=== PATIENT | female | born 1940 | race Caucasian/White ===

== ENCOUNTER 2020-01-15 08:29 | Outpatient (CLI) | payer OTHER, SELFPAY ==
--- NOTE | ~2020-01-15 | MM_ITS ---
EXAMINATION: MM screening [facility] BI w javed HISTORY: Screening mammogram TECHNIQUE: Craniocaudal and mediolateral oblique 3-D tomosynthesis images were obtained and synthetic 2-D images were generated. CAD analysis was submitted and interpreted. COMPARISON: Comparison to multiple prior studies sequentially, with oldest reviewed study dated 09/01. BREAST PARENCHYMAL COMPOSITION: There are scattered areas of fibroglandular density. FINDINGS: There is no evidence of suspicious mass, calcification, or architectural distortion to sugg est malignancy in either breast. There has been no suspicious interval change. IMPRESSION: 1. No mammographic evidence of malignancy. 2. Recommend routine screening mammography in one year. BI-RADS Category 1: Negative Reviewed, dictated and finalized at location A.
== END 2020-01-15 08:30 | disposition home or self-care (01) ==
PROVIDERS: PCP Family Medicine; Visit Provider Obstetrics & Gynecology Gynecology
DX: Z12.31 Encounter for screening mammogram for malignant neoplasm of breast (principal)
CPT/HCPCS: 77063; 77067

== ENCOUNTER 2020-07-16 08:41 | Outpatient (CLI) | payer OTHER, SELFPAY ==
--- NOTE | ~2020-07-16 | DEXA_ITS ---
Bone Density Report Name: Lashaun Guzman Age: 79 Sex: Female Ethnicity: White Date of : 1940 Indication: osteopenia; height loss; hysterectomy; Referring Provider: MONICA GARCIA Study: Bone densitometry was performed. Exam Date: July 16, 2020 Accession number: [id number] Bone Density: Region BMD T-score Z-score Classification AP Spine (L1, L2, L3) 0.887 -1.2 1.4 Osteopenia Femoral Neck (Left) 0.616 -2.1 0.1 Osteopenia Total Hip (Left) 0.777 -1.4 0.6 Osteopenia Total Hip Bilateral Avg 0.763 -1.5 0.5 Osteopenia Femoral Neck (Right) 0.595 -2.3 0.0 Osteopenia Total Hip (Right) 0.748 -1.6 0.4 Osteopenia World Health Organization criteria for BMD impression classify patients as: Normal (T-score at or above -1.0), Osteopenia (T-score between -1.0 and -2.5), or Osteoporosis (T-score at or below -2.5). 10-year Fracture Risk(1): Major Osteoporotic Fracture 16% Hip Fracture 5.0% Reported Risk Factors: [place] (), Neck BMD=0.595, BMI=28.3 (1) FRAX(R) Version 3.08. Fracture probability calculated for an untreated patient. Fracture probability may be lower if the patient has received treatment. Previous Exams: Region Exam Age BMD T-score BMD Change BMD Change Date g/cm2 vs Baseline vs Previous AP Spine(L1, L2, L3) 07/16/2020 79 0.887 -1.2 0.019(2.2%)# 0.017(2.0%) 12/11/2017 77 0.870 -1.3 0.002(0.2%)# 0.002(0.2%)# 12/11/2006 66 0.868 -1.4 Total Hip(Left) 07/16/2020 79 0.777 -1.4 -0.119(-13.3%) -0.010(-1.2%) 12/11/2017 77 0.787 -1.3 -0.109(-12.2%) -0.109(-12.2%) 12/11/2006 66 0.896 -0.4 Total Hip(Right) 07/16/2020 79 0.748 -1.6 -0.081(-9.8%)# -0.009(-1.1%) 12/11/2017 77 0.756 -1.5 -0.073(-8.8%)# -0.073(-8.8%)# 12/11/2006 66 0.829 -0.9 *Denotes significance at 95% confidence level, LSC for AP Spine = 0.022 g/cm2, LSC for Total Hip = 0.027 g/cm2 Clinical Information Provided by Patient: Has used the following medications: Vitamin D Has the following medical conditions: Hysterectomy Patient maximum height was 63 Menopause Age: 49 No regular weight bearing exercise Does not regularly consume dairy products Drinks caffeinated beverages Onset of menses at age 11 Number of children 2 Impression: The patient has low bone mass, based on the Right Femoral Neck T-score. The patient has an estimated ten-year risk of hip fracture of 5% and an estimated ten-year risk of major fr
== END 2020-07-16 08:42 | disposition home or self-care (01) ==
PROVIDERS: PCP Family Medicine; Visit Provider Physician Assistant
DX: Z78.0 Asymptomatic menopausal state (principal); M85.89 Other specified disorders of bone density and structure, multiple sites
CPT/HCPCS: 77080

== ENCOUNTER 2020-09-17 10:05 | Emergency (ER) | payer OTHER, SELFPAY ==
--- NOTE | 2020-09-17 10:11 | ED.FEMALEGU ---
HPI - Female Genitourinary General Chief complaint: Urogenital-Female Stated complaint: uti Time Seen by Provider: 09/17/20 10:11 Source: patient and RN notes reviewed History of Present Illness HPI Narrative: Patient is a 79-year-old female who presents the urgent care with complaints of urinary frequency, urgency, suprapubic pressure and dysuria since Monday. Patient denies of any history of frequent UTIs. Denies of low back pain, fever, nausea, vomiting, abdominal pain. Patient has not taken anything [id number] for her symptoms. No other acute complaints. No acute distress noted. Patient aware of the plan of care. Some parts of this dictation were generated by voice recognition software and may contain typographical and/or grammatical inaccuracies. Related Data Home Medications Medication Instructions Recorded Confirmed multivitamin 1 tablet PO DAILY 06/25/19 09/17/20 omega-3 fatty acids 1,000 mg 1,000 mg PO DAILY 06/25/19 09/17/20 capsule Allergies Allergy/AdvReac Type Severity Reaction Status Date / Time Penicillins Allergy Unknown Unknown Verified 06/05/20 08:19 tramadol Allergy Unknown Unknown Verified 06/05/20 08:19 Review of Systems Review of Systems: Narrative: CONSTITUTIONAL: Denies fever, chills, or sweats. EYES: Denies visual changes, redness, or discharge. ENT: Denies rhinorrhea, congestion, sore throat, or otalgia. CARDIOVASCULAR: Denies chest pain, palpitations, or edema. RESPIRATORY: Denies cough or dyspnea. GASTROINTESTINAL: Denies abdominal pain, nausea, vomiting, or diarrhea. GENITOURINARY: Reports of suprapubic pressure, dysuria, frequency, urgency SKIN: Denies rash or itching. MUSCULOSKELETAL: Denies back pain, joint pain, or myalgia. NEUROLOGIC: Denies headache, numbness, or weakness. All other systems reviewed are negative, except as documented in HPI. [facility] Past Medical History Medical History (Updated 09/17/20 @ 10:36 by JINA Mckeon) History of cystocele Surgical History Surgical History (Updated 06/26/19 @ 09:00 by Michael Gifford MD) H/O rectocele repair Family History Family History (Updated 04/03/14 @ 07:13 by DOCTOR UNKNOWN) Father Hypertension Family history of coronary artery disease Social History Social History Smoking packs per day: 1 Smoking cigarettes per day: 20.0 Years smoked: 45 Smoking pack-years: 45.00 Smoking status: Former smoker Tobacco type: cigarettes Second hand tobacco smoke exposure: No Smoking end date: 08/07/04 Alcohol intake: never Substance use: never Substance use type: does not use Gender identity (if verbalized by the patient): Female Comments At the time of my signature, I reviewed and agree with the nursing past medical, surgical, social, and family history. There is no relevant family history pertinent to the patient complaint. Exam Narrative: Exam Narrative: GENERAL: This is a well-nourished, well-developed patient, in no apparent distress. HEAD: normocephalic, atraumatic. EYES: PERRL. Sclera clear/white. Vision is grossly intact. EARS: External ears normal NOSE: External nose normal with no obvious nasal discharge, nares without redness, no rhinorrhea. THROAT: Mucous membranes moist NECK: Neck supple GASTROINTESTINAL: Abdomen soft, moderate suprapubic tenderness, nondistended. SKIN: warm, intact with no suspicious lesions or rash, good texture and turgor. NEURO: awake, alert, and oriented to person, place and time. There were no obvious focal neurologic abnormalities. EXTREMITIES: No clubbing, cyanosis, or edema. BACK: Negative bilateral CVA tenderness Course Vital Signs Vital signs: Vital Signs Temperature 98.1 F 09/17/20 10:16 Pulse Rate 87 09/17/20 10:16 Respiratory Rate 20 09/17/20 10:16 Blood Pressure 136/71 09/17/20 10:16 Pulse Oximetry 99 09/17/20 10:16 Temperature 98.1 F 09/17/20 1
[2020-09-17 10:16] VITALS: BP 136/71; PULSE 87; RESP 20; TEMP 36.7; O2SAT 99
== END 2020-09-17 10:40 | disposition home or self-care (01) ==
PROVIDERS: Emergency Provider Nurse Practitioner Family; PCP Family Medicine
DX: N39.0 Urinary tract infection, site not specified (principal); Z87.891 Personal history of nicotine dependence
CPT/HCPCS: 81003; 87077; 87086; 87088; 87186; 99213; G0463

== ENCOUNTER → 2021-01-02 03:35 | Outpatient (CLI) | payer OTHER, SELFPAY ==
[2021-01-02 19:46] LABS: SARS-CoV-2 RNA PCR Negative
== END ==
PROVIDERS: PCP Family Medicine; Visit Provider Internal Medicine Gastroenterology
DX: Z01.812 Encounter for preprocedural laboratory examination (principal); Z20.822 Contact with and (suspected) exposure to COVID-19
CPT/HCPCS: C9803; U0003; U0005

== ENCOUNTER 2021-01-05 00:25 | Day surgery (SDC) | payer OTHER, SELFPAY ==
[2020-12-23 13:51] VITALS: BMI 27.8
[2021-01-05 08:10] VITALS: BP 131/72; PULSE 81; RESP 18; TEMP 36.4; O2SAT 100; BMI 28.2
[2021-01-05] MEDS: LACTATED RINGERS 1,000 ML 150 ML IV CONT (08:20)
--- NOTE | 2021-01-05 08:54 | WPDANESEPPF ---
Anes - Initial Pre Proc Eval Procedure: Operation Date: 01/05/21 09:15 Proposed Procedures p Esophagogastroduodenoscopy - Carlito Edwards MD Date/Time: 01/05/21 08:54 Surgeon: Carlito Edwards MD Pre Op Diagnosis: epigastric pain Patient Data Age: 80 Gender: F Height: 5 ft 1 in Weight: 67.7 kg Last Vital Signs Temp 97.6 F 01/05/21 08:10 Pulse 81 01/05/21 08:10 Resp 18 01/05/21 08:10 BP 131/72 01/05/21 08:10 Pulse Ox 100 01/05/21 08:10 Allergies Allergy/AdvReac Type Severity Reaction Status Date / Time Penicillins Allergy Unknown Unknown Verified 01/05/21 08:09 tramadol Allergy Unknown Unknown Verified 01/05/21 08:09 Home Medications Medication Instructions Recorded Confirmed Type lisinopril 5 mg tablet See Rx Instructions .ROUTE 10/16/20 01/05/21 Rx .COMPLEX #90 tablet Patient hx anesthesia problems: none Family hx anesthesia problems: none PMFSH Past Medical History Medical History (Updated 01/05/21 @ 08:54 by Shiv Gaona MD) Essential (primary) hypertension History of cystocele Mixed hyperlipidemia Surgical History Surgical History (Updated 06/26/19 @ 09:00 by Michael Gifford MD) H/O rectocele repair Family History Family History (Updated 04/03/14 @ 07:13 by DOCTOR UNKNOWN) Father Hypertension Family history of coronary artery disease Social History Social History Smoking packs per day: 1 Smoking cigarettes per day: 20.0 Years smoked: 40 Smoking pack-years: 40.00 Smoking status: Former smoker Tobacco type: cigarettes Second hand tobacco smoke exposure: No Smoking end date: 08/07/04 Alcohol intake: never Substance use: never Substance use type: does not use Living arrangements: alone Gender identity (if verbalized by the patient): Female Spiritual care concerns: No Anes - Eval Final PreProcedure Day of Procedure 01/05/21 08:54 Patient weight: normal Heart: regular rate and rhythm Lungs: clear to auscultation Airway: Mallampati scale class II Neurological: alert and oriented Last oral intake: >/= 8 hours ASA classification: II Emergent: no Anesthetic plan: proceed Anesthesia type and monitoring: general GIVS and standard monitoring Informed Consent: The patient's anesthetic plan and its attendant risks and benefits were discussed with the patient/family/POA. Questions were solicited and answers provided to the satisfaction of the patient/family/POA.
--- NOTE | 2021-01-05 08:56 | PM.HPGS ---
History of Present Illness History of Present Illness Consent: Risks, benefits, and alternatives have been discussed and questions answered. Patient agrees to proceed with procedure. Chief complaint: epigastric pain Narrative: Lashaun Guzman is a 80 year old female with intermittent epigastric pain and nausea, using omeprazole as needed. H pylori breathing test negative. Review of Systems Constitutional: Constitutional: Denies headache(s) and Denies weakness Eyes: Eyes: Denies blurry vision ENT: Reports Normal hearing present, Denies headache(s) and Denies neck pain Cardiovascular: Cardiovascular: Denies chest pain and Denies dyspnea Respiratory: Respiratory: Denies dyspnea Gastrointestinal: Gastrointestinal: Reports no additional gastrointestinal complaints Genitourinary: Genitourinary: Denies dysuria Musculoskeletal: Musculoskeletal: Denies neck pain Integumentary/Breasts: Skin/Breast: Denies dry skin Neurologic: Reports Normal hearing present, Denies headache(s) and Denies weakness Psychiatric: Psychiatric: Denies anxiety Endocrine: Endocrine: Denies change in body appearance Hematologic/Lymphatic: Hematologic/Lymphatic: Denies easy bleeding Allergic/Immunologic: Allergic/Immunologic: Denies urticaria PMF Past Medical History Medical History (Updated 01/05/21 @ 08:56 by Carlito Edwards MD) Epigastric pain Essential (primary) hypertension History of cystocele Mixed hyperlipidemia Surgical History Surgical History (Updated 06/26/19 @ 09:00 by Michael Gifford MD) H/O rectocele repair Family History Family History (Updated 04/03/14 @ 07:13 by DOCTOR UNKNOWN) Father Hypertension Family history of coronary artery disease Social History Social History Smoking packs per day: 1 Smoking cigarettes per day: 20.0 Years smoked: 40 Smoking pack-years: 40.00 Smoking status: Former smoker Tobacco type: cigarettes Second hand tobacco smoke exposure: No Smoking end date: 08/07/04 Alcohol intake: never Substance use: never Substance use type: does not use Living arrangements: alone Gender identity (if verbalized by the patient): Female Spiritual care concerns: No Meds Home Medications and Allergies Home Medications Medication Instructions Recorded Confirmed Type lisinopril 5 mg tablet See Rx Instructions .ROUTE 10/16/20 01/05/21 Rx .COMPLEX #90 tablet Allergies Allergy/AdvReac Type Severity Reaction Status Date / Time Penicillins Allergy Unknown Unknown Verified 01/05/21 08:09 tramadol Allergy Unknown Unknown Verified 01/05/21 08:09 Vital Signs Vital Signs - 24 hr 01/05/21 08:10 Temperature 97.6 F Pulse Rate 81 Respiratory Rate 18 Blood Pressure 131/72 Pulse Oximetry 100 Exam Const: General: comfortable and no acute distress HENMT: General nose exam: Normal nares present Eyes: General: appearance normal, both eyes and all related structures Neck: Neck: no JVD Resp: Auscultation: clear to auscultation bilaterally Cardio: Rate: regular rate Rhythm: regular rhythm GI: Inspection: non-distended GI Palp: Yes Soft to palpation Skin: General skin exam: normal color Neuro: General: gait normal Speech: normal speech Extrem: General: normal to inspection Psych: Mental Status: mental status grossly normal Assessment and Plan Assessment and plan (1) Epigastric pain: Code(s): R10.13 - Epigastric pain Status: Acute Assessment and Plan: egd with bx
[2021-01-05 09:13] VITALS: BP 114/57; PULSE 76; RESP 22; O2SAT 97
[2021-01-05 09:23] VITALS: BP 118/57; PULSE 73; RESP 20; O2SAT 99
[2021-01-05 09:33] VITALS: BP 120/65; PULSE 75; RESP 20; O2SAT 99
== END 2021-01-05 10:00 | disposition home or self-care (01) ==
PROVIDERS: PCP Family Medicine; Visit Provider Internal Medicine Gastroenterology
PROC: 0DJ08ZZ Inspection of Upper Intestinal Tract, Via Natural or Artificial Opening Endoscopic (ICD-10-PCS; CPT 43235; principal; 2021-01-05 09:15)
DX: K21.9 Gastro-esophageal reflux disease without esophagitis (principal); R11.0 Nausea; K44.9 Diaphragmatic hernia without obstruction or gangrene; K29.50 Unspecified chronic gastritis without bleeding; E78.2 Mixed hyperlipidemia; I10 Essential (primary) hypertension; Z87.891 Personal history of nicotine dependence
CPT/HCPCS: 43239; 88305; C9803; J2704; J7120; U0003; U0005

== ENCOUNTER 2021-01-19 08:28 | Outpatient (CLI) | payer OTHER, SELFPAY ==
--- NOTE | ~2021-01-19 | MM_ITS ---
EXAMINATION: MM screening [facility] BI w javed HISTORY: Screening mammogram TECHNIQUE: Craniocaudal and mediolateral oblique 3-D tomosynthesis images were obtained and synthetic 2-D images were generated. CAD analysis was submitted and interpreted. COMPARISON: 01/15/2020, 11/06/2018, 10/02/2017 BREAST PARENCHYMAL COMPOSITION: There are scattered areas of fibroglandular density. FINDINGS: Scattered benign-appearing calcifications are present. There is no evidence of suspicious m ass, calcification, or architectural distortion to suggest malignancy in either breast. There has bee n no suspicious interval change. IMPRESSION: 1. No mammographic evidence of malignancy. 2. Recommend routine screening mammography in one year. BI-RADS Category 2: Benign finding(s). Reviewed, dictated and finalized at location A.
== END 2021-01-19 08:29 | disposition home or self-care (01) ==
LOC: ANHIMG 08:32
PROVIDERS: PCP Family Medicine; Visit Provider Obstetrics & Gynecology Gynecology
DX: Z12.31 Encounter for screening mammogram for malignant neoplasm of breast (principal)
CPT/HCPCS: 77063; 77067

== ENCOUNTER 2022-05-04 15:36 | Outpatient (CLI) | payer OTHER, SELFPAY ==
--- NOTE | ~2022-05-04 | MM_ITS ---
EXAMINATION: MM screening [facility] BI w javed HISTORY: Screening mammogram TECHNIQUE: Craniocaudal and mediolateral oblique 3-D tomosynthesis images were obtained and synthetic 2-D images were generated. CAD analysis was submitted and interpreted. COMPARISON: 01/19/2021, 01/15/2020, 11/06/2018 bilateral screening mammogram examinations BREAST PARENCHYMAL COMPOSITION: There are scattered areas of fibroglandular density. FINDINGS: Occasional bilateral benign calcifications. There is no evidence of suspicious mass, calcif ication, or architectural distortion to suggest malignancy in either breast. There has been no suspic ious interval change. IMPRESSION: 1. No mammographic evidence of malignancy. 2. Recommend routine screening mammography in one year. BI-RADS Category 2: Benign finding(s). Reviewed, dictated and finalized at location A.
== END 2022-05-04 15:37 | disposition home or self-care (01) ==
LOC: ANHIMG 15:39
PROVIDERS: PCP Family Medicine; Visit Provider Obstetrics & Gynecology Gynecology
DX: Z12.31 Encounter for screening mammogram for malignant neoplasm of breast (principal)
CPT/HCPCS: 77063; 77067

== ENCOUNTER → 2022-06-14 11:27 | Outpatient (CLI) | payer OTHER, SELFPAY ==
--- NOTE | ~2022-06-14 | XR_ITS ---
EXAMINATION: [id number] DATE: 06/14/2022 11:54 INDICATION: Neck and right arm pain. TECHNIQUE: 4 views of cervical spine were obtained. COMPARISON: None. FINDINGS: Bone alignment is normal. Vertebral body heights are normal. There is moderately decreased disc height at C4-C5 and severely decreased disc height at C5-C6 and C6-C7. There is multilevel uncov ertebral joint osteoarthritis, severe bilaterally from C4-C5 through C6-C7. There is multilevel facet joint osteoarthritis, severe at C7-T1. There is mild central canal stenosis at C5-C6. No prevertebra l soft tissue swelling. IMPRESSION: 1. Severe cervical spondylosis. Reviewed, dictated and finalized at location A. [employer]
== END ==
PROVIDERS: PCP Family Medicine; Visit Provider Family Medicine
DX: M47.812 Spondylosis without myelopathy or radiculopathy, cervical region (principal)
CPT/HCPCS: 72040

== ENCOUNTER 2022-09-02 09:49 | Outpatient (CLI) | payer OTHER, SELFPAY ==
--- NOTE | ~2022-09-02 | DEXA_ITS ---
Bone Density Report Name: RESHMA FELTON Age: 81 Sex: Female Ethnicity: White Date of : 1940 Indication: postmenopausal; screening for osteoporosis; height loss; hysterectomy; Referring Provider: LEEANNA ANDRADE Study: Bone densitometry was performed. Exam Date: September 02, 2022 Accession number: [id number] Bone Density: Region BMD T-score Z-score Classification AP Spine(L1, L2, L3) 0.903 -1.0 1.6 Normal Femoral Neck (Left) 0.598 -2.3 0.1 Osteopenia Total Hip (Left) 0.802 -1.1 1.0 Osteopenia Femoral Neck (Right) 0.629 -2.0 0.4 Osteopenia Total Hip (Right) 0.765 -1.4 0.7 Osteopenia Total Hip Mean 0.784 -1.3 0.9 Osteopenia World Health Organization criteria for BMD impression classify patients as: Normal (T-score at or above -1.0), Osteopenia (T-score between -1.0 and -2.5), or Osteoporosis (T-score at or below -2.5). 10-year Fracture Risk(1): Major Osteoporotic Fracture 17% Hip Fracture 5.4% Reported Risk Factors: [place] (), Neck BMD=0.598, BMI=28.6 (1) FRAX(R) Version 3.08. Fracture probability calculated for an untreated patient. Fracture probability may be lower if the patient has received treatment. Clinical Information Provided by Patient: Has used the following medications: HRT (i.e. estrogen/hormone therapy), Vitamin D Has the following medical conditions: Hysterectomy Patient maximum height was 63 Menopause Age: 49 Does not regularly consume dairy products Drinks caffeinated beverages Onset of menses at age 11 Number of children 2 Impression: The patient has low bone mass, based on the Left Femoral Neck T-score. The patient has an estimated ten-year risk of hip fracture of 5.4% and an estimated ten-year risk of major fracture of 17%, based on the WHO FRAX algorithm. Discussion: BONE DENSITY IS LOW AT ONE OR MORE SKELETAL SITES. THE PATIENT'S BMD AND CLINICAL RISK FACTORS CONTRIBUTE TO THIS PATIENT'S INCREASED RISK OF FRACTURE. This patient's lowest T-score is low at one or more skeletal sites. It meets the World Health Organization's (WHO) criteria for ?low bone mass? (T-score between -1.0 and -2.5). The patient's 10-year risk of hip fracture as calculated by FRAX exceeds the threshold where pharmacological therapy is recommended by the National Osteoporosis Foundation (NOF). However, all treatment decisions require clinical judgment and consideration of individual patient factors, including patient preferences, comorbidities, previous drug use, risk factors not captured in the FRAX model (e.g., frailty, falls, vitamin D deficiency, increased bone turnover, interval significant decline in bone density) and possible under or overestimation of fracture risk by FRAX. The patient should follow a healthful lifestyle (good nutrition with adequate calcium and vi
== END 2022-09-02 09:50 | disposition home or self-care (01) ==
PROVIDERS: PCP Family Medicine; Visit Provider Physician Assistant
DX: Z13.820 Encounter for screening for osteoporosis (principal); M85.80 Other specified disorders of bone density and structure, unspecified site; Z78.0 Asymptomatic menopausal state
CPT/HCPCS: 77080

== ENCOUNTER 2024-02-27 08:39 | Outpatient (CLI) | payer OTHER, SELFPAY ==
--- NOTE | ~2024-02-27 | MM_ITS ---
EXAMINATION: MM screening [facility] BI w javed HISTORY: Screening TECHNIQUE: Craniocaudal and mediolateral oblique 3-D tomosynthesis images were obtained and synthetic 2-D images were generated. CAD analysis was submitted and interpreted. COMPARISON: Comparison to multiple prior studies sequentially, with oldest reviewed study dated 01/2017. BREAST PARENCHYMAL COMPOSITION: Not dense: There are scattered areas of fibroglandular density. FINDINGS: There is no evidence of suspicious mass, calcification, or architectural distortion to sugg est malignancy in either breast. There has been no suspicious interval change. IMPRESSION: 1. No mammographic evidence of malignancy. 2. Recommend routine screening mammography in one year. BI-RADS Category 1: Negative Reviewed, dictated and finalized at location B.
== END 2024-02-27 08:40 | disposition home or self-care (01) ==
LOC: ANHIMG 08:42
PROVIDERS: PCP Family Medicine; Visit Provider Hospitalist
DX: Z12.31 Encounter for screening mammogram for malignant neoplasm of breast (principal)
CPT/HCPCS: 77063; 77067

== ENCOUNTER 2025-03-25 15:34 | Outpatient (CLI) | payer OTHER, SELFPAY ==
--- NOTE | ~2025-03-25 | MM_ITS ---
EXAMINATION: MM screening [facility] BI w javed HISTORY: Screening mammogram TECHNIQUE: Craniocaudal and mediolateral oblique 3-D tomosynthesis images were obtained and synthetic 2-D images were generated. CAD analysis was submitted and interpreted. COMPARISON: 02/27/2024, 05/04/2022, 01/19/2021, 01/15/2020 BREAST PARENCHYMAL COMPOSITION:Not Dense. There are scattered areas of fibroglandular density. FINDINGS: No suspicious mass, calcification, or architectural distortion are identified in either breast to suggest malignancy. There has been no suspicious interval change. IMPRESSION: No mammographic evidence of malignancy. Recommend routine screening mammography in one year. BI-RADS Category 1: Negative Reviewed, dictated and finalized at location .
--- OUTSIDE RECORDS SUMMARY | 2025-03-25 16:01 | XMS_ITS | Clinical Summary ---
Author Organization [facility] Address [address] [facility] [address] [place] [id number] Phone Care Team Providers Care Remote Sensing Program Manager Name Role Phone Letty Servin MD Primary Care Pro vider Michael Mello MD Unavailable [phone] Allergies Active Allergy Reactions Criticality Noted Date Comments Duloxetine Nausea & Vomiting Low 05/30/2023 Doxycycline Nausea & Vomiting Low 10/10/2023 Penicillins Anaphylaxis High 07/28/2015 Reaction: ANAPHYLAXIS, , ANAPHYLACTIC. Medications docusate sodium (COLACE) 100 mg capsuleIndicat ions:constipat ion Take 1 capsule (100 mg total) by mouth every other day Active multivit with min-folic acid 0.4 mg tablet Take by mouth Ac tive cholecalcifero l (VITAMIN D-3) 2000 unit tabletIndicati ons:Vitamin D deficiency Take 1 tablet (2,000 Units total) by mouth daily 90 tablet 3 5 09/11/19 26 Active alendronate (FOSAMAX) 70 mg tabletIndicati ons:Osteopenia with high risk of fracture Take 1 tablet (70 mg total) by mouth every 7 days Take in the morning with a full glass of water, on an empty stomach, and do not take anything else by mouth or lie down for the next 30 min. 12 tablet 4 5 09/11/19 26 Active famotidine (PEPCID) 40 mg tabletIndicati ons:History of gastritis Take 1 tablet (40 mg total) by mouth nightly 90 tablet 1 5 12/20/19 26 Active Additional Information Patient not taking.Reason: bc she is on high dose of prednisone and pantoprazole, Reported on 03/13/2025 tiZANidine (ZANAFLEX) 2 mg tabletIndicati ons:Nocturnal muscle cramps TAKE 1 TABLET BY MOUTH EVERY 8 HOURS NEEDED FOR MUSCLE SPASMS. 270 tablet 1 5 Active predniSONE (DELTASONE) 20 mg tabletIndicati ons:ITP Take 3 tablets (60 mg) by mouth daily 60mg daily for 2 weeks, 40 mg for 2 weeks, 30mg for 2 weeks, 20 mg for 2 weeks and then 10 mg [address] (PROTONIX) 40 mg EC tabletIndicati ons:GI Bleed,Stress Ulcer Prophylaxis,Tr eatment of Non-Bleeding Gastric Disorder Take 1 tablet (40 mg total) by mouth 2 (two) times a day 60 tablet 2 5 Active lidocaine (LIDODERM) 5 %Indications:C hronic midline low back pain with bilateral sciatica Place 1 patch on the skin daily Apply to painful area 12 hours per day, remove for 12 hours. 90 patch 1 4 03/13/20 25 Discontin ued(Thera py completed ) pantoprazole DR (PROTONIX) 20 mg EC tabletIndicati ons:History of gastritis Take 1 tablet (20 mg total) by mouth daily 90 tablet 1 5 03/13/20 25 Discontin ued(Reord er) Active Problems Problem Noted Date Diagnosed Date Osteopenia with high risk of fracture 12/19/2024 Assessment & Plan (12/19/2024 1:38 PM CDT): Continue fosamax Encounter for annual wellnes s visit (AWV) in Medicare patient 11/28/2023 Assessment & Plan (12/19/2024 1:10 PM CDT): Reviewed PMH & FH PHQ Screening PHQ-2 Total Score (If total score is 3 or more points, staff should administer the PHQ-9): 1 Hearing/vision screening reviewed, referrals placed as needed Fall risk reviewed Reviewed medications and supplements Specialists: optho no evidence of cognitive impairment HCM: orders placed as needed Assessment & Plan (11/28/2023 9:44 AM CDT): Reviewed PMH & PHQ Screening PHQ-2 Total Score (If total score is 3 or more points, staff should administer the PHQ-9): 0 PHQ-9 Total Score: 2 Hearing/vision screening reviewed, referrals placed as needed Fall risk reviewed Reviewed medications and supplements Specialists: optho no evidence of cognitive impairment HCM: orders placed as needed Vitamin D deficiency 11/28/2023 Assessment & Plan (12/19/2024 1:39 PM CDT): Controlled continue 2000 international units daily Assessment & Plan (06/21/2024 2:42 PM AMBULATORY CARE): recheck Assessment & Plan (11/28/2023 9:55 AM CDT): At goal Continue supplementation Primary osteoarthritis involving multiple joints 11/28/2023 Assessment & Plan (11/28/2023 10:12 AM CDT): Discussed supportive care, consider starting low dose effexor vs. Amitriptyline pending heme visit next month History of gastritis 10/11/2023 Assessment & Plan (12/19/2024 1:37 PM CDT): Uncontrolled increase pepcid to 40mg nightly If persistent symptoms restart protonix daily Assessment & Plan (06/21/2024 2:53 PM AMBULATORY CARE): Doing well, will try decreasing protonix to 20mg daily Continue pepcid 20mg nightly, can increase to 40mg nightly or 20mg twice a day if needed Assessment & Plan (11/28/2023 10:13 AM CDT): After 2 months will taper down to once a day and then if well tolerated taper down to 20mg daily followed by 20mg every other day Assessment & Plan (10/13/2023 11:29 AM AMBULATORY CARE): Reviewed discharge summary Continue 40mg protonix twice a day x8w Avoid NSAIDS Acute duodenitis 10/11/2023 Assessment & Plan (10/13/2023 11:38 AM AMBULATORY CARE): Reviewed discharge summary Continue 40mg protonix twice a day x8w Avoid NSAIDS Dyspnea 10/10/2023 Thrombocytopenia, unspecified 09/13/2023 Assessment & Plan (12/19/2024 1:11 PM CDT): Following with heme Assessment & Plan (06/21/2024 2:42 PM AMBULATORY CARE): Following with heme Assessment & Plan (11/28/2023 9:55 AM CDT): Following with heme, reviewed note and labs Hypertension 12/21/2013 Overview (11/09/2016): HYPERTENSION NOS Assessment & Plan (12/19/2024 1:11 PM CDT): Blood pressure controlled off medication Assessment & Plan (06/21/2024 2:40 PM AMBULATORY CARE): Blood pressure controlled off medication Assessment & Plan (11/28/2023 9:44 AM CDT): Blood pressure controlled off medication Assessment & Plan (10/13/2023 11:43 AM AMBULATORY CARE): Blood pressure uncontrolled during hospitalization Continue 2.5mg amlodipine Monitor blood pressure at home, if dropping or develops dizziness stop and let me know History of diabetes mellitus 12/21/2013 Overview (11/10/2016): DMII WO CMP UNCNTRLD Assessment & Plan (05/23/2023 8:27 AM CDT): Lab Results Component Value Date HGBA1C 5.0 03/16/2023 Stable off medications Notalgia 05/06/2013 Assessment & Plan (12/19/2024 1:40 PM CDT): Following with orthopedics Cervicalgia 04/16/2010 Resolved Problems Problem Noted Date Diagnosed Date Resolved Date Abdominal pain 10/10/2023 11/28/2023 Epigastric pain 10/10/2023 11/28/2023 Nausea 10/10/2023 11/28/2023 Hypoglycemia 12/21/2013 05/23/2023 Overview (11/11/2016): HYPOGLYCEMIA NOS Hyperlipidemia 12/21/2013 12/19/2024 Overview (11/11/2016): HYPERLIPIDEMIA NEC/NOS Encounters Date Type Department Care Team Description 03/17/2025 Orders Only [facility] Hematology [facility] [address] [place] [address] Sharon Anders Primary hypertension (Primary Dx) 03/13/2025 11:00 AM CDT Office Visit [facility] Oncology [address] [place] [address] [address] [place] [address] Sofie Levi NP Thrombocytopenia, unspecified (Primary Dx); History of gastritis 03/13/2025 10:30 AM CDT Lab [facility] at [address] [address] Thrombocytopenia, unspecified 03/06/2025 Orders Only [facility] [address] [place] [address] [address] [place] [address] Manisha Granado, PERFECTO Thrombocytopenia, unspecified (Primary Dx) 02/26/2025 10:00 AM CDT Lab [facility] at [address] [address] Thrombocytopenia, unspecified 01/23/2025 11:15 AM CDT Office Visit [facility] Primary Care at [address] [place] [address] Letty Servin MD Abnormal bone marrow examination (Primary Dx); Interstitial lung abnormality present on imaging study; Kidney lesion 01/22/2025 Telephone [facility] Orthopedics and Sports Medicine [address] [place] [address] [address] [place] [address] No Gentile NP 01/20/2025 Telephone [facility] Primary Care at [place] [address] [facility] [address] [place] [phone] Letty Servin MD 01/20/2025 Telephone [facility] Orthopedics and Sports Medicine [address] [place] [address] [address] [place] [address] No Gentile NP 01/18/2025 7:15 AM CDT - 01/18/2025 11:59 PM CDT Hospital Encounter [facility] MRI [address] [place] [id number] Chronic bilateral low back pain with left-sided sciatica; Lumbar facet arthropathy, moderate to severe inferior; Degeneration of intervertebral disc of lumbar region, moderate to severe L1-L4 and mild L4-L5 with discogenic back pain and lower extremity pain Discharge Disposition: Discharge to home or self care 12/31/2024 8:30 AM CDT Office Visit [facility] Orthopedics and Sports Medicine [address] [place] [address] [place] [phone] No Gentile, INES Myofascial pain syndrome of lumbar spine (Primary Dx); Chronic bilateral low back pain with left-sided sciatica; Lumbar facet arthropathy, moderate to severe inferior; Degeneration of intervertebral disc of lumbar region, moderate to severe L1-L4 and mild L4-L5 with discogenic back pain and lower extremity pain; Retrolisthesis of lumbar vertebrae, grade 1 L1 on L2 through L3 on L4 from Last 3 Months Immunizations Immunization Administration Dates Next Due Influenza, Quad, Adjuvantate d, Intramuscular 05/22/2020 Influenza, Quadrivalent, Hig h Dose, Preservative Free, Intrr 06/14/2023,07/01/2022,05/15/2022,07/07 Influenza, Trivalent, Adjuva nted, Intramuscular 05/22/2018 Influenza, Trivalent, High D ose, Split, Preservative Free, Intramuscular 05/31/2024,06/14/2019,05/26/2017,05/08,06/12/2015 Influenza, Trivalent, IM (MDV) 06/03/2013 Influenza, Unspecified 06/10/2021 Pfizer SARS-CoV-2 Monovalent Vaccination (12+ Yrs) PURPLE 07/24/2022,06/10/2021,10/04/2020,09/13 Pneumococcal Conjugate PCV 13 05/22/2018 Pneumococcal Conjugate Pcv20 03/09/2023 RSV Vaccine, Pref, Recombina nt, Subunit, Adjuvanted, PF, IM (Arexvy) 07/06/2023 ZOSTER Recombinant 09/10/2019,06/14/2019 Surgical History Surgery Date Site/Laterality Comments SD TOTAL ABDOMINAL HYSTERECT W/WO RMVL TUBE OVARY Hysterectomy - (Added by TW Conv) SD CHOLECYSTECTOMY Cholecystectomy - (Added by TW Conv) CATARACT EXTRACTION Cataract Surgery - (Added by TW Conv) TOTAL KNEE ARTHROPLASTY Knee Replacement - (Added by TW Conv) Medical History Medical History Date Comments Hyperlipidemia Hyperlipoprotein emia - (Added by TW Conv) Personal history of other di seases of the circulatory system History of hypertension - (A dded by TW Conv) Personal history of other en docrine, nutritional and metabolic disease History of diabetes mellitus - (Added by TW Conv) Diabetes mellitus (HCC) Hypertension Binge eating disorder Lichen sclerosus Bilateral iliac artery stenosis mild Dilated cbd, acquired 13 mm Lumbar facet arthropathy DDD (degenerative disc disea se), lumbar Family History Medical History Relation Name Comments Alcohol abuse Brother Lung cancer Brother Pancreatic cancer Brother Brain Aneurysm Father Alcohol abuse Mother Liver disease Mother Alcohol abuse Other 1 Alcohol Abuse - (Added by TW Conv) Stroke Other 2 Stroke Syndrome - (Added by TW Conv) Diabetes Other 3 Diabetes Mellit us - (Added by TW Conv) Heart disease Other 4 Heart Disease - (Added by TW Conv) Hypertension Other 5 Hypertension - (Added by TW Conv) Depression Sister Drug abuse Sister Relation Name Status Comments Brother Father Mother Other 1 Other 2 Other 3 Other 4 Other 5 Sister Social History Tobacco Use Types Packs/Day Years Used Date Smoking Tobacco: Former Cigarettes Q uit: 2017 Tobacco Cessation:Counseling Given: Not Answered [facility] Utilities Answer Date Recorded In the past 12 months has th e [employer], gas, oil, or water [employer] threatened to shut off services in your home? No 10/11/2023 Social Connection and Isolation Panel Answer Date Recorded In a typical week, how many times do you talk on the phone with family, friends, or neighbors? More than three times a week 10/11/2023 How often do you get togethe r with friends or relatives? More than three times a week 10/11/2023 How often do you attend chur ch or christianity services? More than 4 times per year 10/11/2023 Do you belong to any clubs o r organizations such as caodaism groups, unions, fraternal or athletic groups, or school groups? No 10/11/2023 How often do you attend meet ings of the clubs or organizations you belong to? Never 10/11/2023 Are you , , di vorced, , never , or living with a partner? 10/11/2023 AUDIT-C Answer Date Recorded Frequency of Alcohol Consumption Not on file 01/23/2025 Q2: How many drinks containi ng alcohol do you have on a typical day when you are drinking? Patient does not drink Frequency of Binge Drinking Not on file 01/05 Overall Financial Resource Strain (CARDIA) Answe r Date Recorded How hard is it for you to pa y for the very basics like food, housing, medical care, and heating? Not very hard 10/11/2023 PHQ-2 Answer Date Recorded PHQ-2 Total Score (If total score is 3 or more points, staff should administer the PHQ-9) 1 12/19/2024 Hunger Vital Sign Answer Date Recorded Within the past 12 months, y ou worried that your food would run out before you got the money to buy more. Never true 10/11/19 24 Within the past 12 months, t he food you bought just didn't last and you didn't have money to get more. Never true 10/11/2023 PRAPARE - Transportation Answer Date Re corded In the past 12 months, has l ack of transportation kept you from medical appointments or from getting medications? No 01/2024 In the past 12 months, has l ack of transportation kept you from meetings, work, or from getting things needed for daily living? No 10/11/2023 Housing Stability Vital Sign Answer Chandu e Recorded In the last 12 months, was t here a time when you were not able to pay the mortgage or rent on time? No 10/11/2023 In the last 12 months, how many places have you lived? 1 10/11/2023 In the last 12 months, was t here a time when you did not have a steady place to sleep or slept in a halfway (including now)? No 10/11/2023 PHQ-9 Answer Date Recorded PHQ-9 Total Score 2 11/28/2023 Personal Safety Answer Date Recorded Have you ever been in or are you currently in a harmful physical or emotional relationship or is someone making you feel afraid or unsafe? Denies 10/10/2023 Comments No Sex and Gender Information Value Date Recorded Sex Assigned at Not on file Legal Sex Female 12:25 AM AMBULATORY CARE Gender Identity Not on file Sexual Orientation Not on file Occupation Industry Job Start Date Job End Date retired Not on file Not on file Not on file Obstetrics History Last Filed Vital Signs Vital Sign Reading Time Taken Comments Blood Pressure 143/83 03/13/2025 10:49 AM CDT Pulse 75 03/13/2025 10:49 AM CDT Temperature 36.6 C (97.8 F) 03/13/2025 10:49 AM CDT Respiratory Rate 18 03/13/2025 10:49 AM CDT Oxygen Saturation 98% 03/13/2025 10:49 AM CDT Inhaled Oxygen Concentration - - Weight 67.7 kg (149 lb 4 oz) 03/13/2025 10:49 AM CDT Height 154.9 cm (5' 1) 01/23/2025 11:22 AM CDT Body Mass Index 28.2 01/23/2025 11:22 AM CDT Plan of Treatment Health Maintenance Due Date Last Done Comments DTaP/Tdap/Td Vaccine (1 - Tdap) 1951 Covid-19 Vaccine (2023-2 5 season) 2024 07/06/2023, 07/24/2022, 07/24/2022, Additional history exists Influenza Vaccine (#1) 2025 , 06/14/2023, 07/01/2022, Additional history exists Depression Screening 12/19/2025 12/19/2024, 11/28/2023, 11/28/2023, Additional history exists Fall Risk Assessment 12/19/2025 12/19/2024, 11/28/2023, 10/12/2023 Well Visit 65+ 12/19/2025 12/19/2024, 11/28/2023 Osteoporosis Screening-Bone Density Scan 09/06/2026 09/06/2024 Zoster Vaccine Completed 09/10/2019, 06/14/2019 Pneumococcal vaccine 65+ Completed 03/09/2023, 05/07 Hepatitis B Screening Completed 09/10/2024 Medical Devices Implanted Type Area Court [employer] Device Identifier Shelf Expiration Date Model / Serial / Lot Other - See Comments Other - see comments Bilatera l: Knee Procedures Procedure Name Priority Date/Time Associated Diagnosis Comments BLOOD SMEAR REVIEW Routine 03/13/2025 10:39 AM CDT Thrombocytopenia, unspecified EGFR Routine 03/13/2025 10:39 AM CDT Thrombocytopenia, unspecified DIFFERENTIAL AUTO Routine 03/13/2025 10:39 AM CDT Thrombocytopenia, unspecified CBC WITH AUTO DIFFERENTIAL Routine 03/13/2025 10:39 AM CDT Thrombocytopenia, unspecified COMPREHENSIVE METABOLIC PANEL Routine 03/13/2025 10:39 AM CDT Thrombocytopenia, unspecified RETICULOCYTES Routine 03/13/2025 10:39 AM CDT Thrombocytopenia, unspecified HAPTOGLOBIN Routine 03/13/2025 10:39 AM CDT Thrombocytopenia, unspecified LACTATE DEHYDROGENASE Routine 03/13/2025 10:39 AM CDT Thrombocytopenia, unspecified BLOOD SMEAR REVIEW Routine 02/26/2025 9: 58 AM CDT Thrombocytopenia, unspecified DIFFERENTIAL AUTO Routine 02/26/2025 9:5 8 AM CDT Thrombocytopenia, unspecified CBC WITH AUTO DIFFERENTIAL Routine 02/26/2025 9:58 AM CDT Thrombocytopenia, unspecified MRI LUMBAR SPINE WO CONTRAST Schedule Routine, Read Routine (OP Routine) 01/18/2025 7:52 AM CDT Chronic bilateral low back pain with left-sided sciatica Lumbar facet arthropathy, moderate to severe inferior Degeneration of intervertebral disc of lumbar region, moderate to severe L1-L4 and mild L4-L5 with discogenic back pain and lower extremity pain SD INJECTION SINGLE/GREEN BUILDING ARCHITECT TRIGGER POINT 1/2 MUSCLES Routine 12/31/2024 8:30 AM CDT Myofascial pain syndrome of lumbar spine DEXA AXIAL SKELETON BONE DENSITY 1 OR MORE SITES Schedule Routine, Read Routine (OP Routine) 09/06/2024 9:37 AM AMBULATORY CARE Post-menopausal from Last 3 Months or Most Recently Relevant to Health Maintenance Results * Blood smear review (03/13/2025 10:39 AM CDT) RBC morphology Consistent with RBC Indicies Comment:Testing performed by : [facility], [address] [place] [address]., [id number] Platelet estimate Adequate ADRIANA DOBBS Comment:Testing performed by : [facility], [address] [place] [address]., [id number] Blood 03/13/2025 10:3 9 AM CDT 03/13/2025 10:41 AM CDT Sofie Levi MARKETING FORECASTER LAB BLOOD ORDERABLES Final Result ADRIANA [address] [facility] [place] [address] * (ABNORMAL) eGFR (03/13/2025 10:39 AM CDT) eGFR 56(L) >=60 mL/min/1. 73 m2 Comment: Interpretive Data Reference Interval Normal >/= 90 mL/min/1.73m2 Mildly decreased* 60 - 89 mL/min/1.73m2 Mildly to moderately decreased 45 - 59 mL/min/1.73m2 Moderately to severely decreased 30 - 44 mL/min/1.73m2 Severely decreased 15 - 29 mL/min/1.73m2 Kidney Failure < 15 mL/min/1.73m2 *Relative to young adult level Estimated glomerular filtration rate is determined by the 2020 CKD-EPI equation recommended by the National Kidney Foundation (A Unifying Approach to GFR Estimation: Recommendations of the NKF-ASK Task Force on Reassessing the Inclusion of Race in Diagnosing Kidney Disease, JASN 2020). The CKD-EPI equation should not be used for patients with unstable renal function and has not been validated in children and those over 70. Current interpretive data was last reviewed 2021. Testing performed by: [address] [address] Blood 03/13/2025 10:3 9 AM CDT 03/13/2025 10:41 AM CDT Sofie Levi MARKETING FORECASTER LAB BLOOD ORDERABLES Final Result Performing Organization Address City/State/[facility] Co de Phone Number ADRIANA [phone] [facility] Department [place] [address] * (ABNORMAL) Differential, auto (03/13/2025 10:39 AM CDT) Neutrophil abs 20.95(H) 1.50 - 6.50 K/cumm Comment:Testing performed by : [address] [address] Imm gran abs 2.16(H) 0.00 - 0.10 K/cumm ADRIANA Comment:Testing performed by : [address] [address] Lymphocyte abs 2.05 0.80 - 3.30 K/cumm ADRIANA Comment:Testing performed by : [address] [address] Monocyte abs 1.73(H) 0.20 - 0.80 K/cumm ADRIANA Comment:Testing performed by : [address] [address] Eosinophil abs 0.18 0.00 - 0.50 K/cumm ADRIANA Comment:Testing performed by : [address] [place]., [address] Basophil abs 0.14(H) 0.00 - 0.10 K/cumm ADRIANA Comment:Testing performed by : [address] [address] Neutrophil pct 77.0 % [facility] Comment: Interpretive Data Percent cell count reference ranges are not reported, since discordance with absolute values may lead to misinterpretation of CBC data. Current Interpretive Data was last revised on 2017. Testing performed by: [address] [address] Imm gran pct 7.9 % [facility] Comment: Interpretive Data Percent cell count reference ranges are not reported, since discordance with absolute values may lead to misinterpretation of CBC data. Current Interpretive Data was last revised on 2017. Testing performed by: [address] [address] Lymphocyte pct 7.5 % [facility] Comment: Interpretive Data Percent cell count reference ranges are not reported, since discordance with absolute values may lead to misinterpretation of CBC data. Current Interpretive Data was last revised on 2017. Testing performed by: [address] [address] Monocyte pct 6.4 % [facility] Comment: Interpretive Data Percent cell count reference ranges are not reported, since discordance with absolute values may lead to misinterpretation of CBC data. Current Interpretive Data was last revised on 2017. Testing performed by: [address] [address] Eosinophil pct 0.7 % [facility] Comment: Interpretive Data Percent cell count reference ranges are not reported, since discordance with absolute values may lead to misinterpretation of CBC data. Current Interpretive Data was last revised on 2017. Testing performed by: [address] [address] Basophil pct 0.5 % [facility] Comment: Interpretive Data Percent cell count reference ranges are not reported, since discordance with absolute values may lead to misinterpretation of CBC data. Current Interpretive Data was last revised on 2017. Testing performed by: [address] [address] Blood 03/13/2025 10:3 9 AM CDT 03/13/2025 10:41 AM CDT Sofie Levi NP LAB BLOOD ORDERABLES Final Result [facility] [address] [facility] [facility] [place] [address] * (ABNORMAL) CBC with auto differential (03/13/2025 10:39 AM CDT) WBC 27.21(H) 3.80 - 9.90 K/cumm Comment:Testing performed by : [address] [address] Hgb 13.2 11.9 - 15.5 g/dL ADRIANA Comment:Testing performed by : [address] [address] Hct 40.0 35.6 - 45.5 % ADRIANA Comment:Testing performed by : [address] [address] Plt 108(L) 150 - 400 K/cumm ADRIANA Comment:Testing performed by : [address] [address] MPV 12.0 9.1 - 12.3 fL ADRIANA Comment:Testing performed by : [address] [address] RBC 4.56 3.90 - 5.20 M/cumm ADRIANA Comment:Testing performed by : [address] [address] MCV 87.7 81.3 - 96.4 fL ADRIANA Comment:Testing performed by : [address], [address] MCH 28.9 27.1 - 33.3 pg ADRIANA Comment:Testing performed by : [address] [address] MCHC 33.0 32.3 - 35.7 g/dL ADRIANA Comment:Testing performed by : [address] [address] RDW CV 17.5(H) 11.1 - 14.9 % ADRIANA Comment:Testing performed by : [address] [address] RDW SD 55.2(H) 35.7 - 48.1 fL ADRIANA Comment:Testing performed by : [address] [address] NRBC abs 0.02(H) 0.00 - 0.01 K/cumm ADRIANA Comment:Testing performed by : [address] [address] ANC Prelim 20.95(H) 1.50 - 6.50 K/cumm ADRIANA Comment: Interpretive Data The rapid ANC is a preliminary automated count and may vary from the final ANC (Neut Abs) reported in the WBC differential that follows. Current interpretive data was last revised 2024. Testing performed by: [address] [address] Blood 03/13/2025 10:3 9 AM CDT 03/13/2025 10:41 AM CDT Sofie Levi MARKETING FORECASTER LAB BLOOD ORDERABLES Final Result [facility] [address] [facility] [place] [address] * (ABNORMAL) Reticulocyte Count (03/13/2025 10:39 AM CDT) Retics, absolute 123(H) 20 - 87 K/cumm Comment:Testing performed by : [address] [address] Retics 2.7 0.4 - 2.9 % ADRIANA Comment:Testing performed by : [address] [address] Reticulocyte Hgb 32.9 30.5 - 38.0 pg ADRIANA Comment:Testing performed by : [address] [address] Blood 03/13/2025 10:3 9 AM CDT 03/13/2025 10:41 AM CDT Sofie Levi NP LAB BLOOD ORDERABLES Final Result Performing Organization Address [facility] Co de Phone Number [id number] [place] [employer] [address] * Lactate dehydrogenase (LD) (03/13/2025 10:39 AM CDT) Lactate dehydrogenase (LDH) 229 100 - 250 Units/L Comment:Testing performed by : [facility], [address] [place] [address]., [address] Blood 03/13/2025 10:3 9 AM CDT 03/13/2025 10:41 AM CDT Sofie Levi NP LAB BLOOD ORDERABLES Final Result Performing Organization Address [facility] Co de Phone Number [address] [address] * Haptoglobin (03/13/2025 10:39 AM CDT) Haptoglobin 119 30 - 200 mg/dL Comment:Hemolyzed; result ma y be falsely decreased Blood 03/13/2025 10:3 9 AM CDT 03/13/2025 2:26 PM CDT Sofie Levi NP LAB BLOOD ORDERABLES Final Result Performing Organization Address City/[facility] Co de Phone Number [address] [address] * (ABNORMAL) Comprehensive metabolic panel (03/13/2025 10:39 AM CDT) Pathologist [facility] Sodium 139 135 - 145 mmol/L Comment:Testing performed by : [facility], [address] [place] [address]., [address] Potassium, pl 4.2 3.3 - 4.9 mmol/L [facility] Comment:Testing performed by : [address] [address] Chloride 100 97 - 110 mmol/L [facility] Comment:Testing performed by : [address], [place]., [address] CO2 28 22 - 32 mmol/L [facility] Comment:Testing performed by : [address] [address] Anion gap 11 2 - 15 mmol/L [facility] Comment:Testing performed by : [address] [address] BUN 23 6 - 25 mg/dL [facility] Comment:Testing performed by : [address] [address] Creatinine 1.00 0.60 - 1.10 mg/dL [facility] Comment:Testing performed by : [address] [address] Glucose 102 70 - 199 mg/dL [facility] Comment: Interpretive Data Fasting glucose >/= 126 mg/dl is diagnostic for diabetes. Fasting is defined as no caloric intake for at least 8 hours. Fasting glucose between 100 mg/dl to 125 mg/dl is diagnostic of prediabetes. In a patient with classic symptoms of hyperglycemia or hyperglycemic crisis, a random glucose >/= 200 mg/dl is diagnostic for diabetes. In the absence of unequivocal hyperglycemia, results should be confirmed by repeat testing. The classification and Diagnosis of Diabetes Diabetes Care 202; 46: S19-S40. Current interpretive data was last revised 2022. Testing performed by: [address] [address] Calcium 9.2 8.5 - 10.3 mg/dL [facility] Comment:Testing performed by : [address] [address] Bilirubin, total 0.9 0.1 - 1.2 mg/dL [facility] Comment:Testing performed by : [address] [address] Protein, pl 6.7 6.5 - 8.5 g/dL [facility] Comment:Testing performed by : [address] [address] Albumin 4.3 3.5 - 5.0 g/dL ADRIANA DOBBS Comment:Testing performed by : [address] [address] Alk phos 59 40 - 130 Units/L ADRIANA DOBBS Comment:Testing performed by : [address] [address] ALT 47(H) 7 - 45 Units/L ADRIANA Comment:Testing performed by : [address], [address] AST 19 10 - 45 Units/L ADRIANA Comment:Testing performed by : [address] [address] Blood 03/13/2025 10:3 9 AM CDT 03/13/2025 10:41 AM CDT us Sofie Levi NP LAB BLOOD ORDERABLES Final Result Performing Organization Address City/[facility]/ZIP Co de Phone Number ADRIANA [address] [place] [address] * (ABNORMAL) Blood smear review (02/26/2025 9:58 AM CDT) RBC morphology Consistent with RBC Indicies Comment:Testing performed by : [address] [address] Platelet estimate Decreased(A) ADRIANA Comment:Testing performed by : [address] [address] Blood 02/26/2025 9:58 AM CDT 02/26/2025 10:02 AM CDT us Michael Mello MD LAB BLOOD ORDERABLES Fi nal Result Performing Organization Address City/[facility]/ZIP Co de Phone Number ADRIANA [address] [place] [address] * (ABNORMAL) Differential, auto (02/26/2025 9:58 AM CDT) [facility] Neutrophil abs 6.97(H) 1.50 - 6.50 K/cumm Comment:Testing performed by : [address] [address] Imm gran abs 0.41(H) 0.00 - 0.10 K/cumm ADRIANA Comment:Testing performed by : [address] [address] Lymphocyte abs 1.50 0.80 - 3.30 K/cumm [facility] Comment:Testing performed by : [address] [address] Monocyte abs 1.04(H) 0.20 - 0.80 K/cumm [facility] Comment:Testing performed by : [address] [address] Eosinophil abs 0.25 0.00 - 0.50 K/cumm [facility] Comment:Testing performed by : [address] [address] Basophil abs 0.04 0.00 - 0.10 K/cumm [facility] Comment:Testing performed by : [address] [address] Neutrophil pct 68.3 % [facility] Comment: Interpretive Data Percent cell count reference ranges are not reported, since discordance with absolute values may lead to misinterpretation of CBC data. Current Interpretive Data was last revised on 2017. Testing performed by: [address] [address] Imm gran pct 4.0 % [facility] Comment: Interpretive Data Percent cell count reference ranges are not reported, since discordance with absolute values may lead to misinterpretation of CBC data. Current Interpretive Data was last revised on 2017. Testing performed by: [address] [address] Lymphocyte pct 14.7 % [facility] Comment: Interpretive Data Percent cell count reference ranges are not reported, since discordance with absolute values may lead to misinterpretation of CBC data. Current Interpretive Data was last revised on 2017. Testing performed by: [address] [address] Monocyte pct 10.2 % ADRIANA Comment: Interpretive Data Percent cell count reference ranges are not reported, since discordance with absolute values may lead to misinterpretation of CBC data. Current Interpretive Data was last revised on 2017. Testing performed by: [address] [address] Eosinophil pct 2.4 % ADRIANA Comment: Interpretive Data Percent cell count reference ranges are not reported, since discordance with absolute values may lead to misinterpretation of CBC data. Current Interpretive Data was last revised on 2017. Testing performed by: [address] [address] Basophil pct 0.4 % ARDIANA Comment: Interpretive Data Percent cell count reference ranges are not reported, since discordance with absolute values may lead to misinterpretation of CBC data. Current Interpretive Data was last revised on 2017. Testing performed by: [address] [address] Blood 02/26/2025 9:58 AM CDT 02/26/2025 10:02 AM CDT Michael Mello MD LAB BLOOD ORDERABLES nal Result [facility] [address] [facility] [place] [address] * (ABNORMAL) CBC with auto differential (02/26/2025 9:58 AM CDT) WBC 10.21(H) 3.80 - 9.90 K/cumm Comment:Testing performed by : [address] [address] Hgb 13.1 11.9 - 15.5 g/dL ADRIANA DOBBS Comment:Testing performed by : [address] [address] Hct 39.3 35.6 - 45.5 % ADRIANA Comment:Testing performed by : [address] [address] Plt 55(L) 150 - 400 K/cumm ADRIANA DOBBS Comment:Testing performed by : [address] [address] MPV Not Measured 9.1 - 12.3 fL ADRIANA Comment:Testing performed by : [address] [address] RBC 4.59 3.90 - 5.20 M/cumm ADRIANA Comment:Testing performed by : [address] [address] MCV 85.6 81.3 - 96.4 fL ADRIANA Comment:Testing performed by : [address] [address] MCH 28.5 27.1 - 33.3 pg ADRIANA Comment:Testing performed by : [address] [address] MCHC 33.3 32.3 - 35.7 g/dL ADRIANA Comment:Testing performed by : [address] [address] RDW CV 16.8(H) 11.1 - 14.9 % ADRIANA Comment:Testing performed by : [address] [address] RDW SD 51.9(H) 35.7 - 48.1 fL ADRIANA Comment:Testing performed by : [address] [address] NRBC abs 0.00 0.00 - 0.01 K/cumm ADRIANA Comment:Testing performed by : [address] [address] ANC Prelim 6.97(H) 1.50 - 6.50 K/cumm ADRIANA Comment: Interpretive Data The rapid ANC is a preliminary automated count and may vary from the final ANC (Neut Abs) reported in the WBC differential that follows. Current interpretive data was last revised 2024. Testing performed by: [address] [address] Blood 02/26/2025 9:58 AM CDT 02/26/2025 10:02 AM CDT us Michael Mello MD LAB BLOOD ORDERABLES Fi nal Result ADRIANA [address] [facility] [place] [address] * MRI Lumbar Spine WO Contrast (01/18/2025 7:52 AM CDT) Anatomical Region Laterality Modality Spine N/A Magnetic Resonan ce 01/20/2025 11:5 3 AM CDT Narrative 01/20/2025 12:00 PM CDT EXAM DESCRIPTION: MRI LUMBAR SPINE WO CONTRAST REASON FOR STUDY: Lumbar radiculopathy, symptoms persist with > 6 wks treatment, pain Worked on her feet for 40 years. Double leg sciatica. No trauma. Wear and tear TECHNIQUE: Sagittal and Axial imaging includes T1, T2, STIR sequences. COMPARISON: Lumbar spine radiographs dated 09/03/2024 and 06/21/2024. Relevant portions of the CT abdomen and pelvis dated 10/10/2023. FINDINGS: SEGMENTATION: 5 hqo-gul-ttytlba lumbar type vertebral bodies. ALIGNMENT: Grade 1 retrolisthesis of L1 on L2 through L3 on L4. Levoconvex curvature. VERTEBRAE: The L2-L3 opposing endplate STIR hyperintense signal to the right of midline is nonspecific but likely degenerative in nature as this signal is located along the scoliotic curvature. Elsewhere additional vxoj-sc-lsuytaoc endplate degenerative changes and marginal spur formation. There are inter spinous degenerative changes. Background relative diffuse T1 hypointense, stir hyperintense marrow signal alteration is indeterminate. DISC HEIGHT: Multilevel intervertebral disc height loss ranging up to severe along the scoliotic curvature. HARDWARE: None in the spine. CORD/CAUDA: Conus medullaris terminates at L1. LOWER THORACIC: Incompletely imaged. Degenerative changes without high-grade spinal canal stenosis. INDIVIDUAL DISC LEVELS: L1-L2: Retrolisthesis of L1 on L2 with unroofing of the disc and marginal spur formation. Bilateral facet arthropathy. Flattening of the ventral thecal sac. Mild right and no significant left neural foraminal narrowing. L2-L3: Retrolisthesis of L2 on L3 with unroofing of the disc and marginal spur formation eccentric to the right neural foramen. Thickened ligamentum flavum and facet arthropathy. Mild right ventral spinal canal stenosis and right lateral recess narrowing. Moderate right and no significant left neural foraminal narrowing. L3-L4: Retrolisthesis of L3 on L4 with unroofing of the disc. Thickened ligamentum flavum and facet arthropathy. Uheu-sc-hsuelvaj spinal canal stenosis. Lateral recess narrowing on both sides. Lsie-ui-fhunmvmt neural foraminal narrowing. L3-L4: Disc bulge with marginal spur formation eccentric to the left neural foramen. Thickened ligamentum flavum and facet arthropathy. Right lateral spinal canal/subarticular zone 3 mm mixed T2 and T1 signal could be a spur off of the facet joint or complex synovial cyst. Constellation of findings with xfrc-ly-itovwlrt spinal canal stenosis and severe left lateral recess narrowing. Pedv-lf-tepqkbpw left and no significant right neural foraminal narrowing. L5-S1: Minor disc bulge with facet arthropathy. No significant spinal canal or neural foraminal narrowing. VISUALIZED UPPER ABDOMEN: Prominence of the imaged common bile duct is nonspecific and could be on the basis of post cholecystectomy state. Please correlate laboratory data if there is concern for an obstructive pattern. Right renal 0.3 cm T2 dark, T1 hypointense signal is too small to characterize but does not meet criteria for simple cyst. Attention on follow-up. IMPRESSION: 1. Dextroconvex curvature with lumbar disc degeneration ranging up to severe, thickened ligamentum flavum and facet arthropathy as described. The spinal canal narrowing is most noticeable at L3-L4 and L4-L5. 2. Varying degrees of bilateral neural foraminal narrowing and additional findings as above. 3. Relative diffuse T1 hypointense bone marrow signal is indeterminate and could reflect red marrow reconversion in setting of chronic anemia, obesity or tobacco use in a patient without history of malignancy. Request clinical correlation to exclude marrow replacing process/metastatic disease. THIS IS AN ELECTRONICALLY VERIFIED FINAL REPORT 01/20/2025 12:00 PM - Electronically signed by Sylvester RAMOS T: Report ID: [id number] Reading Location: [place] [address] Procedure Note Sylvester Palomo, DO - 01/20/2025 EXAM DESCRIPTION: MRI LUMBAR SPINE WO CONTRAST REASON FOR STUDY: Lumbar radiculopathy, symptoms persist with > 6 wks treatment, pain Worked on her feet for 40 years. Double leg sciatica. No trauma. Wear and tear TECHNIQUE: Sagittal and Axial imaging includes T1, T2, STIR sequences. COMPARISON: Lumbar spine radiographs dated 09/03/2024 and 06/21/2024. Relevant portions of the CT abdomen and pelvis dated 10/10/2023. FINDINGS: SEGMENTATION: 5 mak-zra-slpicno lumbar type vertebral bodies. ALIGNMENT: Grade 1 retrolisthesis of L1 on L2 through L3 on L4.Levoconvex curvature. VERTEBRAE: The L2-L3 opposing endplate STIR hyperintense signal to theright of midline is nonspecific but likely degenerative in nature as this signalis located along the scoliotic curvature. Elsewhere ulgbejjhgmnchk-sm-kfzexnnd endplate degenerative changes and marginal spur formation. There areinter spinous degenerative changes. Background relative diffuse T1 hypointense, stir hyperintense marrow signal alteration is indeterminate. DISC HEIGHT: Multilevel intervertebral disc height loss ranging up tosevere along the scoliotic curvature. HARDWARE: None in the spine. CORD/CAUDA: Conus medullaris terminates at L1. LOWER THORACIC: Incompletely imaged. Degenerative changes without high-grade spinal canal stenosis. INDIVIDUAL DISC LEVELS: L1-L2: Retrolisthesis of L1 on L2 with unroofing of the disc and marginalspur formation. Bilateral facet arthropathy. Flattening of the ventral thecal sac. Mild right and no significant left neural foraminal narrowing. L2-L3: Retrolisthesis of L2 on L3 with unroofing of the disc and marginalspur formation eccentric to the right neural foramen. Thickened ligamentumflavum and facet arthropathy. Mild right ventral spinal canal stenosis and right lateral recess narrowing. Moderate right and no significant left neural foraminal narrowing. L3-L4: Retrolisthesis of L3 on L4 with unroofing of the disc. Thickened ligamentum flavum and facet arthropathy. Gipz-tg-ycdowbpu spinal canal stenosis. Lateral recess narrowing on both sides. Rbaq-jk-icgvravfujeyap foraminal narrowing. L3-L4: Disc bulge with marginal spur formation eccentric to the leftneural foramen. Thickened ligamentum flavum and facet arthropathy. Rightlateral spinal canal/subarticular zone 3 mm mixed T2 and T1 signal could be a spuroff of the facet joint or complex synovial cyst. Constellation of findingswith xnyh-qt-ienowhaq spinal canal stenosis and severe left lateral recess narrowing. Yrpx-ga-qegvbofc left and no significant right neuralforaminal narrowing. L5-S1: Minor disc bulge with facet arthropathy. No significant spinalcanal or neural foraminal narrowing. VISUALIZED UPPER ABDOMEN: Prominence of the imaged common bile duct is nonspecific and could be on the basis of post cholecystectomy state.Please correlate laboratory data if there is concern for an obstructive pattern. Right renal 0.3 cm T2 dark, T1 hypointense signal is too small tocharacterize but does not meet criteria for simple cyst. Attention on follow-up. IMPRESSION: 1. Dextroconvex curvature with lumbar disc degeneration ranging up to severe, thickened ligamentum flavum and facet arthropathy as described.The spinal canal narrowing is most noticeable at L3-L4 and L4-L5. 2. Varying degrees of bilateral neural foraminal narrowing andadditional findings as above. 3. Relative diffuse T1 hypointense bone marrow signal is indeterminateand could reflect red marrow reconversion in setting of chronic anemia,obesity or tobacco use in a patient without history of malignancy. Request clinical correlation to exclude marrow replacing process/metastatic disease. THIS IS AN ELECTRONICALLY VERIFIED FINAL REPORT 01/20/2025 12:00 PM - Electronically signed by Sylvester RAMOS T: Report ID: [id number] Reading Location: [place] [address] No Gentile NP IMG MRI PROCEDURES Final Re sult * SD INJECTION SINGLE/GREEN BUILDING ARCHITECT TRIGGER POINT 1/2 MUSCLES (12/31/2024 8:30 AM CDT) Narrative No Gentile NP - 12/31/2024 8:30 AM CDT No Gentile NP 01/20/2025 4:47 PM Trigger Point Injection Performed by: No Gentile NP Authorized by: No Gentile NP Consent Given by: Patient Site marked: the procedure site was marked Timeout: prior to procedure the correct patient, procedure, and site was verified Consent obtained:: Verbal Risks discussed, including, but not limited to:: Pain and repeat procedure Alternatives discussed:: Alternative treatment, delayed treatment and no treatment Site/side marked: Yes Indications: Myalgia Location: L lumbar paraspinal, R lumbar paraspinal and L piriformis Local anesthetic: Ethyl chloride spray Ultrasound guidance: No Needle size: 22 G Number of muscles: 1 or 2 Approach: Posterior Medications: 6 mL lidocaine 10 mg/mL (1 %); 120 mg triamcinolone 40 mg/mL Patient tolerance: Patient tolerated the procedure well with no immediate complications us No 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 History of taking vitamin-D and hormone replacement therapy. 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 CLINICAL INFORMATION: Current height: 61 inches Maximum height: 63 inches Weight: 149 pounds Risk factors: None COMPARISON: None available FINDINGS: AP LUMBAR SPINE L1-L4: Total BMD is 0.991 g/cm2 T-score is -0.5 LEFT HIP: Total BMD is 0.744 g/cm2 T-score is -1.6 Femoral neck BMD is 0.659 g/cm2 T-score is -1.7 FRAX: 10 year risk for a major osteoporotic fracture is 14 %, 10 year risk for a hip fracture is 4 % IMPRESSION: Low bone mass REFERENCE: Bone mineral density: T-Score: Normal (T-score above or = -1.0) Low bone mass (T-score between -1.0 and -2.5) replaces the previously used term osteopenia Osteoporosis (T-score = or below -2.5) Z-Score: Within the expected range for age (Z-score above -2.0) Below the expected range for age (Z-score is -2.0 or below) Please see below follow up recommendations. Medical evaluation for secondary causes of low bone mineral density may be appropriate. FRAX is a World Health Organization validated fracture risk assessment tool that calculates a person's 10 year probability of a major osteoporosis related fracture and hip fracture. According to the National Osteoporosis Foundation guidelines, postmenopausal women and men age 50 or older with low bone mass and a 10 year probability of a major osteoporosis related fracture = or greater than 20% or a 10 year probability of a hip fracture = or greater than 3% should be considered for pharmacological treatment for the prevention of osteoporosis. For further information, including treatment recommendations, please refer to the 2019 ISCD Official Positions (http://www.iscd.org) and the NOF's Clinician's Guide to Prevention and Treatment of Osteoporosis (http://www.nof.org/professionals/clinical-guidelines) THIS IS AN ELECTRONICALLY VERIFIED FINAL REPORT 09/06/2024 10:03 AM - Electronically signed by Bita Shirley M.D. TW: TW Report ID: [id number] Reading Location: [id number] Procedure Note Bita Shirley MD - 09/06/2024 EXAM DESCRIPTION: DEXA AXIAL SKELETON BONE DENSITY 1 OR MORE SITES REASON FOR STUDY: 83 y/o year old F with given history of: Post menopausal status. History of taking vitamin-D and hormone replacement therapy. 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 CLINICAL INFORMATION: Current height: 61 inches Maximum height: 63 inches Weight: 149 pounds Risk factors: None COMPARISON: None available FINDINGS: AP LUMBAR SPINE L1-L4: Total BMD is 0.991 g/cm2 T-score is -0.5 LEFT HIP: Total BMD is 0.744 g/cm2 T-score is -1.6 Femoral neck BMD is 0.659 g/cm2 T-score is -1.7 FRAX: 10 year risk for a major osteoporotic fracture is 14 %, 10 year risk for ahip fracture is 4 % IMPRESSION: Low bone mass REFERENCE: Bone mineral density: T-Score: Normal (T-score above or = -1.0) Low bone mass (T-score between -1.0 and -2.5) replaces thepreviously used term osteopenia Osteoporosis (T-score = or below -2.5) Z-Score: Within the expected range for age (Z-score above -2.0) Below the expected range for age (Z-score is -2.0 or below) Please see below follow up recommendations. Medical evaluation forsecondary causes of low bone mineral density may be appropriate. FRAX is a World Health Organization validated fracture risk assessmenttool that calculates a person's 10 year probability of a major osteoporosisrelated fracture and hip fracture. According to the National OsteoporosisFoundation guidelines, postmenopausal women and men age 50 or older with low bonemass and a 10 year probability of a major osteoporosis related fracture = or greater than 20% or a 10 year probability of a hip fracture = or greaterthan 3% should be considered for pharmacological treatment for the preventionof osteoporosis. For further information, including treatment recommendations, please referto the 2019 ISCD Official Positions (http://www.iscd.org) and the NOF's Clinician's Guide to Prevention and Treatment of Osteoporosis (http://www.nof.org/professionals/clinical-guidelines) THIS IS AN ELECTRONICALLY VERIFIED FINAL REPORT 09/06/2024 10:03 AM - Electronically signed by Bita Shirley M.D. TW: ATIYA Report ID: [id number] Reading Location: [place] [address] Letty Servin MD IMMarilee DXA PROCEDURE S Final Result from Last 3 Months or Most Recently Relevant to Health Maintenance Insurance * Guarantor: Lashaun Guzman Account Type Relation to Patient Date of Phone Billing Address Personal/Family Self 1940 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
== END 2025-03-25 15:35 | disposition home or self-care (01) ==
LOC: ANHFOHIMG 15:35
PROVIDERS: PCP Family Medicine; Visit Provider Hospitalist
DX: Z12.31 Encounter for screening mammogram for malignant neoplasm of breast (principal)
CPT/HCPCS: 77063; 77067